=== PATIENT | female | born 1945 | race Caucasian/White ===

== ENCOUNTER 2016-09-24 12:34 | Emergency (ER) | payer OTHER ==
[~2016-09-24] VITALS: Ht 160 cm; Wt 80.0 kg
[2016-09-24] MEDS ORDERED: SOD CHLORIDE 0.9% 1,000 ML IV STA (12:36)
[2016-09-24 13:05] VITALS: Ht 160 cm; Wt 80.0 kg
[2016-09-24 13:21] LABS: ADD SCAN DIFF NO
[2016-09-24 13:30] LABS: BASOPHILS % 0.5 % (0.0-2.0); EOSINOPHILS # 0.2 10^3/ul (0.0-0.5); EOSINOPHILS % 2.1 % (0.0-7.0); HEMATOCRIT 30.5 % (37.0-47.0); HEMOGLOBIN 9.2 g/dl (12.0-16.0); LYMPHOCYTES # 0.8 10^3/ul (0.8-2.9); LYMPHOCYTES % 10.3 % (15.0-51.0); MEAN CORPUSCULAR HEMOGLOBIN 24.3 pg (29.0-33.0); MEAN CORPUSCULAR HGB CONC 30.2 g/dl (32.0-37.0); MEAN CORPUSCULAR VOLUME 80.5 fl (82.0-101.0); MEAN PLATELET VOLUME 9.2 fl (7.4-10.4); MONOCYTE # 0.5 10^3/ul (0.3-0.9); MONOCYTES % 6.1 % (0.0-11.0); NEUTROPHILS % 80.6 % (39.0-77.0); PLATELET COUNT 218 10^3/UL (140-415); RED BLOOD COUNT 3.79 10^6/ul (4.20-5.40); RED CELL DISTRIBUTION WIDTH 20.3 % (11.5-14.5); WHITE BLOOD COUNT 7.5 10^3/ul (4.8-10.8)
[2016-09-24 13:32] LABS: ALBUMIN 2.8 g/dl (3.3-4.9)
[2016-09-24 13:33] LABS: CHLORIDE 95 mmol/L (97-110); POTASSIUM 4.5 mmol/L (3.5-5.1); SODIUM 136 mmol/L (135-144)
[2016-09-24 13:35] LABS: ALBUMIN/GLOBULIN RATIO 0.66; ALKALINE PHOSPHATASE 165 IU/L (42-121); ANION GAP 16 (8-16); ASPARTATE AMINO TRANSFERASE 24 IU/L (15-46); BILIRUBIN,INDIRECT 0.2 mg/dl (0-1.1); BILIRUBIN,TOTAL 0.2 mg/dl (0.2-1.3); CARBON DIOXIDE 30 mmol/L (21-31); CREATININE 1.24 mg/dl (0.44-1.00)
[2016-09-24 13:36] LABS: ALANINE AMINOTRANSFERASE 23 IU/L (13-69); BLOOD UREA NITROGEN 17 mg/dl (7-20); CALCIUM 8.5 mg/dl (8.4-10.2); GLUCOSE 123 mg/dl (70-220)
[2016-09-24 13:48] LABS: TROPONIN-I < 0.012 ng/ml (0.00-0.12)
--- NOTE | 2016-09-24 14:09 | ERD ---
ER Documentation Chief Complaint Date/Time DATE: 09/24/16 TIME: 14:04 Chief Complaint Pt BIB RA for hypoglycemic episode and slow to respond. HPI 71-year-old woman brought in by EMS from home for episodic hypoglycemia and changes in mental status. Daughter who was later at the bedside states this has happened previously. Patient has a history of diabetes mellitus and her mental status improved after EMS administered dextrose. She has had no recent fevers or chills although she was diagnosed with right septic arthritis which required orthopedic surgical intervention and continues to undergo intravenous antibiotic administration with vancomycin and levofloxacin daily. She has had no dysuria, no vaginal discharge, no melena or blood per rectum, no weakness in her arms or legs, no complaints of chest pain or shortness of breath, no URI symptoms. Patient was transported here by EMS without further complications. ROS All systems reviewed and are negative except as per history of present illness. Medications Home Meds Unable to Obtain Active Prescriptions or Reported Meds Allergies Allergies: Coded Allergies: No Known Allergy (Unverified , 09/24/16) PMhx/Soc Hypertension, diabetes mellitus, recent right knee septic arthritis currently being treated with IV vancomycin and levofloxacin, atrial fibrillation, stasis dermatitis History of Surgery: Yes (R knee surgery) Anesthesia Reaction: No Hx Neurological Disorder: No Hx Respiratory Disorders: No Hx Cardiac Disorders: No Hx Psychiatric Problems: No Hx Miscellaneous Medical Probl: Yes (DM, HTN) Hx Alcohol Use: No Hx Substance Use: No Hx Tobacco Use: No Smoking Status: Never smoker FmHx Family History: No diabetes Physical Exam Vitals Vital Signs Date Time Temp Pulse Resp B/P Pulse Ox O2 Delivery O2 Flow Rate FiO2 09/24/16 15:15 98.3 87 18 126/82 100 Room Air 09/24/16 13:05 98.1 84 16 134/85 100 Physical Exam GENERAL: Well-developed, elderly woman, afebrile, no apparent distress HEENT: Moist mucous membranes, pink conjunctiva, no cervical spine tenderness or step-off deformities, no goiter, no jaundice or icterus, extraocular movements intact without pain. No submandibular induration, and no pharyngeal erythema NEURO: Alert and oriented 2, cranial nerves II through XII intact bilaterally, pupils equal round reactive to light, no focal deficits or facial asymmetry CARDIAC: Regular rate and rhythm, no murmurs rubs or gallops LUNGS: Clear bilaterally no wheezing crackles or stridor ABDOMEN: Soft nontender, no guarding, no rigidity, no rebound, no psoas sign no obturator sign. SKIN: Warm and dry to touch, no abrasions, contusions, or hematomas, no lacerations, no ecchymosis, no target lesions, and without ulcers EXTREMITIES: 3+ pitting edema lower extremities bilaterally with chronic skin changes consistent with bilateral stasis dermatitis, surgical scar over the right knee appears clean and dry and well-healed, calves bilaterally symmetrical , PSYCH: Normal affect without agitation or irritability Result Diagram: 09/24/16 1300 09/24/16 1300 Results 24 hrs Laboratory Tests Test 09/24/16 12:58 09/24/16 13:00 09/24/16 13:45 Bedside Glucose 122mg/dL White Blood Count 7.510^3/ul Red Blood Count 3.7910^6/ul Hemoglobin 9.2g/dl Hematocrit 30.5% Mean Corpuscular Volume 80.5fl Mean Corpuscular Hemoglobin 24.3pg Mean Corpuscular Hemoglobin Concent 30.2g/dl Red Cell Distribution Width 20.3% Platelet Count 71121^3/UL Mean Platelet Volume 9.2fl Neutrophils % 80.6% Lymphocytes % 10.3% Monocytes % 6.1% Eosinophils % 2.1% Basophils % 0.5% Nucleated Red Blood Cells % 0.0/100WBC Neutrophils # 6.010^3/ul Lymphocytes # 0.810^3/ul Monocytes # 0.510^3/ul Eosinophils # 0.210^3/ul Basophils # 0.010^3/ul Nucleated Red Blood Cells # 0.010^3/ul Sodium Level 136mmol/L Potassium Level 4.5mmol/L Chloride Level 95mmol/L Carbon Dioxide Level 30mmol/L Anion Gap 16 Blood Urea Nitrogen 17mg/dl Creatinine 1.24mg/dl Glucose Level 123mg/dl Calcium Level 8.5mg/dl Total Bilirubin 0.2mg/dl Direct Bilirubin 0.00mg/dl Indirect Bilirubin 0.2mg/dl Aspartate Amino Transf (AST/SGOT) 24IU/L Alanine Aminotransferase (ALT/SGPT) 23IU/L Alkaline Phosphatase 165IU/L Troponin I < 0.012ng/ml Total Protein 7.0g/dl Albumin 2.8g/dl Globulin 4.20g/dl Albumin/Globulin Ratio 0.66 Lipase 14U/L Urine Color LT. YELLOW Urine Clarity CLEAR Urine pH 7.0 Urine Specific [place] 1.010 Urine Ketones NEGATIVE Urine Nitrite NEGATIVE Urine Bilirubin NEGATIVE Urine Urobilinogen 0.2 E.U./dL Urine Leukocyte Esterase NEGATIVE Urine Hemoglobin NEGATIVE Urine Glucose NEGATIVE% Urine Total Protein NEGATIVE Current Medications Medications (Trade) Dose Ordered Sig/Yasmin Route PRN Reason Start Time Stop Time Status Last Admin Dose Admin Sodium Chloride (NS) 1,000 ml @ 1,000 mls/hr Q1H STAT IV 09/24/16 12:36 09/24/16 13:35 DC 09/24/16 13:32 Procedures/MDM IV line was established patient was placed on general superintendent rhythm strip revealed a atrial fibrillation at about 80 bpm. Patient was afebrile. I administered 1 L normal saline intravenously, blood sugar was checked and was normal. EKG performed, read by me revealed an atrial fibrillation rate controlled at 83 bpm, normal axis, narrow QRS complex, no concerning ST elevations or depressions noted. One view chest x-ray performed, read by me there is cardiomegaly, no acute infiltrates, no pneumothorax, no end of the diaphragm. Daughter who was later at the bedside states her mother's mental status is at baseline and normal and thus the initial CT scan of the brain was canceled given her normal neurologic exam which was repeated by me at the bedside. CBC reveals a mild anemia with a hemoglobin of 9.2, electrolytes reveal a BUN/ creatinine of 17/1.2, liver function tests normal, troponin negative. Urine analysis negative for infection. Differential diagnoses considered, included but not limited to acute coronary syndrome, pulmonary embolism, aortic dissection, abdominal aortic aneurysm, sepsis, stroke, meningitis, encephalitis, pneumonia, appendicitis, cholecystitis , bowel obstruction, pyelonephritis, nephrolithiasis, cystitis, as well as metabolic, hematologic, and electrolyte abnormalities. As well as abscess, cellulitis, fractures, and dislocations. Patient feels much better at this time, and vital signs are normal, symptoms have improved. I did give strict instructions to return to the ED if symptoms continue or worsen, patient will otherwise follow-up with primary care physician. Patient understood instructions and agreed to plan. Disclaimer: Inadvertent spelling or grammatical errors are likely due to EHR/ dictation software use and do not reflect on the overall quality of patient care. Departure Diagnosis: Primary Impression: Hypoglycemia Additional Impression: Dehydration Condition: Good LESLYE ROSE MD September 24, 2016 14:09
[2016-09-24 14:16] LABS: ADD UMIC NO; URINE BILIRUBIN (Dip) NEGATIVE (NEGATIVE); URINE BLOOD (Dip) NEGATIVE (NEGATIVE); URINE COLOR LT. YELLOW (YELLOW); URINE GLUCOSE (Dip) NEGATIVE (NEGATIVE); URINE KETONES (Dip) NEGATIVE (NEGATIVE); URINE LEUKOCYTE ESTERASE (Dip) NEGATIVE (NEGATIVE); URINE NITRITE (Dip) NEGATIVE (NEGATIVE); URINE TOTAL PROTEIN (Dip) NEGATIVE (NEGATIVE); URINE UROBILINOGEN (Dip) 0.2 E.U./dL (0.1-1.0)
[2016-09-24 15:15] VITALS: BP 126/82; PULSE 87; RESP 18; TEMP 98.3
--- NOTE | 2016-09-24 15:59 | RADRPT ---
PROCEDURE: CR, chest CLINICAL INDICATION: Cough/abdomen pain. TECHNIQUE: AP chest. COMPARISON: None available. FINDINGS: The heart is moderately enlarged. There is no acute infiltrate in the lungs. No pleural effusion. The right PICC line remains in good position. IMPRESSION: 1. Moderate cardiomegaly. RPTAT: GG .Silver Garcia MD, MD Date Time Electronically viewed and signed by .Silver Garcia MD, MD on 09/24/2016 15:59 .Y/
== END 2016-09-24 15:18 | disposition home or self-care (01) ==
LOC: E/R 12:34
DX: E11.649 Type 2 diabetes mellitus with hypoglycemia without coma (principal); E86.0 Dehydration; I10 Essential (primary) hypertension
CPT/HCPCS: 36415; 71010; 80053; 81003; 82962; 83690; 84484; 85025; 87086; 93005; 96360; 99285; J7030